=== PATIENT | male | born 1965 | race Two or more races ===

== ENCOUNTER 2019-09-08 00:21 | Emergency (ER) | payer MEDICAID ==
[~2019-09-08] VITALS: Ht 162.6 cm; Wt 86.2 kg
--- NOTE | 2019-09-08 00:39 | NUR ---
PT BIBRA FROM STREET FOR ALCOHOL INTOXICATION. STRONG ALCOHOL SMELL AND ONE EPISODE VOMITTING ON ARRIVAL. PT OPENS EYES TO VOICE, DOZING INTERMITTENTLY. APPEARS DISSHEVELED. RESPIRATIONS EVEN AND UNLABORED. NO ACUTE DISTRESS NOTED AT THIS TIME. PLACED ON MONITOR, WILL CONTINUE TO MONITOR.
[2019-09-08] MEDS ORDERED: ONDANSETRON HCL/PF - ER 4 MG/2 ML VIAL IV ONE (01:30)
[2019-09-08] MEDS ORDERED: ONDANSETRON HCL/PF 4 MG/2 ML VIAL ONE (01:35)
--- NOTE | 2019-09-08 01:39 | NUR ---
PT RETURNED FROM CT AND BEGAN TO HAVE MULTIPLE EPISODES OF VOMITTING. ER AWARE. ZOFRAN IV 4MG ADMINISTERED.
--- NOTE | 2019-09-08 02:56 | NUR ---
PT ASLEEP, NO ACUTE DISTRESS NOTED, RESP EVEN AND UNLABORED. NO PAIN OR DISCOMFORT NOTED. CALL LIGHT WITHIN REACH WILL CONTINUE TO MONITOR PT.
--- NOTE | 2019-09-08 05:53 | NUR ---
PT RESTING COMFORTABLY IN BED. OPENS EYES TO PAINFUL STIMULI. STILL APPEARS INTOXICATED. VITAL SIGNS STABLE. WILL CONTINUE TO MONITOR
--- NOTE | 2019-09-08 07:51 | NUR ---
ASSUMED CARE PATIENT ASLEEP BUT AROUSABLE REAMIN SLEEPY EYES OPEN AND BACK TO SLEEP ,VITALS, TAKEN AND RECORDED
--- NOTE | 2019-09-08 09:15 | NUR ---
Patient sleepy but arousable ,noted english speaking patient provided me his daughter phone number i called her and spoke to Dex her number
[2019-09-08 11:02] VITALS: BP 133/67
--- NOTE | 2019-09-08 11:07 | NUR ---
PATIENT NOTED HAS SUPRA PUBIC CATH EMTIED FULL YELLO URINE ,ALSO PATIENT HAS PERMA CATH RCW DRESSING CLEAN AND DRY LAST DIALYZED WAS MONDAY PER ELEANOR
--- NOTE | 2019-09-08 11:46 | NUR ---
PATIENT AWAKE ALERT AND ORRIENTED NOTED ABLE TO A,BULTED TO BATHROOM AND HE EMPTIED HIS BANKS SUPRA CATH URINE OF 200 ML , I CALLED HIS DAUGHTER ELEANOR AGREES TO PICK HIM UP ETA X1 HOUR ,PATIENT ABLE TO SIGNED DC HOME INTRUCTION AGREES TO FOLLOW UP PMD IN 2 DAYS VERBALIZED UNDERSTANDING
--- NOTE | 2019-09-08 11:52 | NUR ---
MAC REMOVED RT HAND NOTED NO EDEMA ,NO PAIN CATH INTACT
--- NOTE | 2019-09-08 12:48 | NUR ---
Patient discharged to home in stable condition. Written and verbal after care instructions given. Patient verbalizes understanding of instruction.
== END 2019-09-08 12:50 | disposition home or self-care (01) ==
LOC: ER 00:24
DX: F10.129 Alcohol abuse with intoxication, unspecified (principal); Y90.9 Presence of alcohol in blood, level not specified
CPT/HCPCS: 70450; 96374; 99284; J2405 ×2